=== PATIENT | female | born 1980 | race Caucasian/White ===

== ENCOUNTER 2022-03-07 09:21 | Emergency (ER) | payer OTHER ==
[~2022-03-07] VITALS: Ht 162.6 cm; Wt 65.8 kg
[2022-03-07] MEDS ORDERED: BUPR-319 PO (09:35)
[2022-03-07] MEDS ORDERED: LEVO25TA2 PO (09:35)
[2022-03-07] MEDS ORDERED: TRAZ-182 PO (09:35)
[2022-03-07] MEDS ORDERED: FLUO40CA49 PO (09:35)
--- NOTE | 2022-03-07 09:40 | NUR ---
41 yrs female came c/o vomition brite red blood this mornitng c/o no pain but tenderness abdomin soft examin by DR alaina gamboa with pt about plan of care
--- NOTE | 2022-03-07 09:45 | NUR ---
D/C instraction given to pt fully and verblized understood d/c home with fallow up care plan of care fallow up with CT scan of abdomin
== END 2022-03-07 09:50 | disposition home or self-care (01) ==
LOC: ER 09:21
DX: R10.31 Right lower quadrant pain (principal); K92.0 Hematemesis; F41.9 Anxiety disorder, unspecified; F43.10 Post-traumatic stress disorder, unspecified; Z79.899 Other long term (current) drug therapy; E03.9 Hypothyroidism, unspecified; Z79.890 Hormone replacement therapy
CPT/HCPCS: A4663